=== PATIENT | female | born 1980 | race Caucasian/White ===

== ENCOUNTER 2023-05-04 07:26 | Emergency (ER) | payer MEDICAID ==
[~2023-05-04] VITALS: Ht 152.4 cm; Wt 70.8 kg
[2023-05-04 07:42] VITALS: BP_SYST 134; PULSE 57; RESP 18; TEMP 97
[2023-05-04] MEDS ORDERED: NEOM28.37 TP (07:56)
[2023-05-04] MEDS ORDERED: ACYC-133 PO (07:56)
[2023-05-04 08:04] VITALS: BP_SYST 134; PULSE 57; RESP 18; TEMP 97
== END 2023-05-04 08:03 | disposition home or self-care (01) ==
LOC: SED 07:26
DX: B02.9 Zoster without complications (principal); R21 Rash and other nonspecific skin eruption; Z79.899 Other long term (current) drug therapy
CPT/HCPCS: 99283

== ENCOUNTER 2023-09-30 16:28 | Emergency (ER) | payer OTHER, MEDICAID ==
[~2023-09-30] VITALS: Ht 165.1 cm; Wt 65.8 kg
[~2023-09-30 16:28] MED LIST: ACYC-133 PO; NEOM28.37 TP
[2023-09-30 16:34] VITALS: BP_SYST 140; PULSE 80; RESP 20; TEMP 98; O2SAT 99
== END 2023-09-30 18:05 | disposition left against medical advice (07) ==
LOC: SED 16:28
DX: F41.9 Anxiety disorder, unspecified (principal); R20.0 Anesthesia of skin; Z90.49 Acquired absence of other specified parts of digestive tract
CPT/HCPCS: 99281